=== PATIENT | female | born 1950 | race Caucasian/White ===

== ENCOUNTER 2018-06-27 10:36 | Emergency (ER) | payer OTHER, MEDICAID ==
[2018-06-27] MEDS: ACETAMINOPHEN 325 MG TAB PO (11:06)
[2018-06-27] MEDS: SILVER SULFADIAZINE 1% 25 GM CR TOP (11:07)
[2018-06-27] MEDS: DIPHTH/TET/ACEL PERTUSS (ADULT) 0.5 ML VIAL IM* (11:07)
== END 2018-06-27 11:39 | disposition home or self-care (01) ==
LOC: FTE 10:36
DX: T23.272A Burn of second degree of left wrist, initial encounter (principal); I10 Essential (primary) hypertension; X10.2XXA Contact with fats and cooking oils, initial encounter; Y92.9 Unspecified place or not applicable; Z23 Encounter for immunization
CPT/HCPCS: 90471; 90715; 99283-25

== ENCOUNTER 2019-02-23 04:33 | Emergency (ER) | payer OTHER, MEDICAID | END 2019-02-23 05:35 | disposition home or self-care (01) | LOC: FTE 04:33 | DX: H92.01 Otalgia, right ear (principal); I10 Essential (primary) hypertension; Z76.0 Encounter for issue of repeat prescription | CPT/HCPCS: 99283 ==